=== PATIENT | male | born 2000 | race Caucasian/White ===

== ENCOUNTER 2023-01-01 20:55 | Emergency (ER) | payer OTHER ==
[~2023-01-01] VITALS: Ht 188 cm; Wt 100.0 kg
[2023-01-01 20:58] VITALS: BP 129/62; PULSE 66; RESP 18; TEMP 98.3; O2SAT 98
[2023-01-01] MEDS ORDERED: IBUP-2029 MT (22:22)
[2023-01-01] MEDS ORDERED: KETOROLAC 30MG/ML VIAL IM ONE (22:30)
== END 2023-01-01 22:54 | disposition home or self-care (01) ==
LOC: ER 20:55
DX: M79.644 Pain in right finger(s) (principal); Z90.89 Acquired absence of other organs; X58.XXXA Exposure to other specified factors, initial encounter; Y93.89 Activity, other specified; Y92.89 Other specified places as the place of occurrence of the external cause; Y99.8 Other external cause status
CPT/HCPCS: 99283; 73130; J1885